=== PATIENT | male | born 1935 | race Caucasian/White ===

== ENCOUNTER 2021-08-11 10:40 | Outpatient (CLI) | payer BC | END 2021-08-11 23:59 | disposition home or self-care (01) | LOC: LAB.N 10:40 | PROVIDERS: ATTEND Physician Assistant Medical | DX: N41.9 Inflammatory disease of prostate, unspecified (principal) | CPT/HCPCS: 87086 ==

== ENCOUNTER 2022-05-02 00:30 | Outpatient (CLI) | payer BC | END 2022-05-02 23:59 | disposition short-term general hospital (02) | LOC: EMS 00:30 | DX: I21.3 ST elevation (STEMI) myocardial infarction of unspecified site (principal) | CPT/HCPCS: A0425; A0427 ==